=== PATIENT | female | born 1995 | race American Indian/Alaskan Native ===

== ENCOUNTER 2018-05-14 12:45 | Inpatient (IN) | payer MEDICAID, OTHER ==
[2018-05-14] MEDS ORDERED: LACTATED RINGERS 1,000 ML IV SCH ×2 (14:00→15:00)
[2018-05-14] MEDS ORDERED: PITOCin/NS 30 UNIT/500ML 30 UNITS/500 ML BAG IV SCH ×2 (15:00)
[2018-05-14] MEDS ORDERED: PITOCin/NS 20 UNIT/1000ML DRIP 20 UNITS/1,000 ML BAG IV SCH ×2 (15:00→21:11)
[2018-05-14] MEDS ORDERED: SUBLIMAZE IV PRN (15:00)
[2018-05-14] MEDS ORDERED: XYLOCAINE 2% INFILTRATI ONE (15:00)
[2018-05-14] MEDS ORDERED: STADOL IV PRN (15:00)
[2018-05-14] MEDS ORDERED: BRETHINE SUB-Q PRN (15:00)
[2018-05-14] MEDS ORDERED: BRETHINE IVP PRN (15:00)
[2018-05-14] MEDS ORDERED: ZOFRAN IV PRN ×2 (15:00→21:11)
[2018-05-14] MEDS ORDERED: NUBAIN IV PRN (15:00)
[2018-05-14] MEDS ORDERED: POLYCILLIN/NS 2 GM/100 ML 2 GM/100 ML BAG IV ONE (15:47)
[2018-05-14] MEDS ORDERED: NARCAN 2 MG/2 ML IV PRN (15:54)
--- NOTE | 2018-05-14 15:54 | Anesthesia Consultation ---
Anesthesia Consult and Med Hx Date of service: 05/14/18 - Airway Anesthetic Teeth Evaluation: Good ROM Head & Neck: Adequate Mental/Hyoid Distance: Adequate Mallampati Class: Class II Intubation Access Assessment: Probably Good - Pulmonary Exam CTA: Yes - Cardiac Exam Cardiac Exam: RRR - Pre-Operative Health Status ASA Pre-Surgery Classification: ASA2, Emergency Proposed Anesthetic Plan: Epidural - Pulmonary Hx Asthma: No COPD: No Hx Pneumonia: No - Cardiovascular System Hx Hypertension: No - Central Nervous System Hx Seizures: No Hx Psychiatric Problems: No - Endocrine Hx Renal Disease: No Hx End Stage Renal Disease: No Hx Hypothyroidism: No Hx Hyperthyroidism: No - Hematic Hx Anemia: No Hx Sickle Cell Disease: No - Other Systems Hx Alcohol Use: No
[2018-05-14] MEDS ORDERED: fentaNYL-BUPIV 2 MCG/ML-0.125% 200 MCG/100 ML BAG EPIDURAL SCH (16:00)
[2018-05-14 16:01] LABS: Hematocrit 31.1 % (30.3-42.9); Mean Corpuscular HGB Conc 32 % (30-34); Mean Corpuscular Hemoglobin 27 pg (28-32); Mean Corpuscular Volume 84 fl (79-97); Platelet Count 228 K/mm3 (140-440); Red Blood Count 3.72 M/mm3 (3.65-5.03); Red Cell Distribution Width 13.7 % (13.2-15.2)
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
--- NOTE | 2018-05-14 18:05 | Procedure Note ---
OB Delivery Note - Delivery Date of Delivery: 05/14/18 Surgeon: ANTONIO GODINZE Estimated blood loss: 200cc - Vaginal Delivery presentation: vertex Delivery position: OA Delivery induction: none Delivery monitor: external FHT, external uterine Route of delivery: Delivery placenta: spontaneous (intact) Episiotomy: none Delivery laceration: none Anesthesia: epidural - A at 1 minute: 8 at 5 minutes: 9 Gender: Male (7#10oz)
[2018-05-14] MEDS ORDERED: AMPICILLIN/NS 1 GM/50 ML 1 GM/50 ML BAG IV SCH (18:49)
[2018-05-14] MEDS ORDERED: TYLENOL PO PRN (21:11)
[2018-05-14] MEDS ORDERED: PHENERGAN PR PRN (21:11)
[2018-05-14] MEDS ORDERED: CYTOTEC PR PRN (21:11)
[2018-05-14] MEDS ORDERED: HEMABATE IM PRN (21:11)
[2018-05-14] MEDS ORDERED: METHERGINE IM PRN (21:11)
[2018-05-14] MEDS ORDERED: DULCOLAX PR PRN (21:11)
[2018-05-14] MEDS ORDERED: PHENERGAN PO PRN (21:11)
[2018-05-14] MEDS ORDERED: MILK OF MAGNESIA PO PRN (21:11)
[2018-05-14] MEDS ORDERED: SODIUM CHLORIDE FLUSH SYRINGE 10 ML IV SCH (21:11)
[2018-05-14] MEDS ORDERED: BENADRYL PO PRN (21:11)
[2018-05-14] MEDS ORDERED: LANSINOH TP PRN (21:11)
[2018-05-14] MEDS ORDERED: TUCKS PAD TP PRN (21:11)
[2018-05-14] MEDS: MOTRIN PO SCH (21:44)
[2018-05-14] MEDS ORDERED: MINERAL OIL PO PRN (22:00)
[2018-05-15] MEDS: MOTRIN PO SCH ×2 (05:54→14:20)
--- NOTE | 2018-05-15 06:44 | Discharge Summary ---
Providers - Providers Date of Admission: 05/14/18 14:28 Date of discharge: 05/15/18 (pt desires d/c if possible) Attending physician: ANTONIO GODINEZ 05/14/18 21:11 Consult to Brim Setter [CONS] Routine Reason For Exam: assistance with , SNS Primary care physician: ANTONIO GODINEZ Hospitalization Reason for admission: active labor Delivery: Episiotomy: none Laceration: none Incision: normal Other procedures: none complications: none Discharge diagnosis: IUP at term delivered [place] baby: male Hospital course: uncomplicated vaginal delivery Pt sleeping in bed with baby and SO VSS FF below umb Lochia small Perineum intact H&H pending Doing well s/p vag delivery. P: d/c today with instructions RTO 1 week circ and 4 weeks PP care. RX provided Condition at discharge: Good Disposition: DC-01 TO HOME OR SELFCARE - Discharge Diagnoses (1) Spontaneous vaginal delivery Status: Acute Comment: RTO 4 weeks PP care Plan - Discharge Medications Prescriptions: Lidocain2.5%/Prilocai2.5% [Emla] 5 gm TP ONCE #1 tube - Provider Discharge Summary Activity: routine, no sex for 6 weeks, no heavy lifting 4 weeks, no strenuous exercise Diet: routine Instructions: routine Additional instructions: [] Smoking cessation referral if applicable(refer to patient education folder for contact #) [] Refer to [facility]'s [facility] Booklet Call your doctor immediately for: * Fever > 100.5 * Heavy vaginal bleeding ( >1 pad per hour) * Severe persistent headache * Shortness of breath * Reddened, hot, painful area to leg or breast * Drainage or odor from incision. * Keep incision clean and dry at all times and follow doctor's instructions regarding bathing/showering - Follow up plan Follow up: ANTONIO GODINEZ MD [Primary Care Provider] - 7 Days (Congratulations! Please call [phone] to schedule your visit in 4weeks. Make an appointment for your son in 1 week for circumcision. Bring the EMLA cream with you to his visit. Do NOT use at home. Motrin for cramping and pain. Call with concerns.)
[2018-05-15 07:58] LABS: Hematocrit 24.8 % (30.3-42.9)
[2018-05-15] MEDS ORDERED: BOOSTRIX IM ONE (18:00)
[2018-05-15 18:26] VITALS: BP 116/76
== END 2018-05-15 21:45 | disposition home or self-care (01) | DRG 775 ==
LOC: TRG 12:45 → LD 14:28 → OB 19:45
PROVIDERS: ADMIT Obstetrics & Gynecology; ATTEND Obstetrics & Gynecology
PROC: 10E0XZZ Delivery of Products of Conception, External Approach (ICD-10-PCS; principal; 2018-05-14)
PROC: 3E0R3BZ Introduction of Anesthetic Agent into Spinal Canal, Percutaneous Approach (ICD-10-PCS; 2018-05-14)
PROC: 00HU33Z Insertion of Infusion Device into Spinal Canal, Percutaneous Approach (ICD-10-PCS; 2018-05-14)
DX: O80 Encounter for full-term uncomplicated delivery (principal); Z3A.39 39 weeks gestation of pregnancy; Z37.0 Single live birth
CPT/HCPCS: 36415; 85014; 85018; 85027; 86592; 86850; 86900; 86901; A6250; J0290; J2590; J3010; J7120